=== PATIENT | female | born 1985 | race Caucasian/White ===

== ENCOUNTER → 2017-01-11 | Outpatient (CLI) | payer OTHER ==
[~2017-01-11] MED LIST: AMOXIL500 MG PO; MEDROL 4MG. DOSE4 MG PO; MOTRIN 400MG.400 MG PO; NICOTINE T21 MG/24 H TD; NOMEDS XX; PRENATAL CAPLE1 EACH PO; STERAPRED DS10 MG PO; VICODIN 7.5/501 EACH PO
[2017-01-11 09:12] LABS: LYMPH # 2.2 K/mm3 (0.7-4.5)
[2017-01-11 09:31] LABS: HEMOGLOBIN 14.6 g/dL (12.2-16.2)
[2017-01-11 10:54] LABS: BUN 8 mg/dL (7-18)
[2017-01-11 10:55] LABS: GFR (ESTIMATED) 83 ML/MIN (59-)
[2017-01-12 10:37] LABS: Vitamin D, 25-Hydroxy 24.3 ng/mL (30.0-100.0)
== END ==
LOC: LAB 08:51
PROVIDERS: Nurse Practitioner Family
DX: R53.83 Other fatigue (principal)